=== PATIENT | female | born 1995 | race Caucasian/White ===

== ENCOUNTER 2017-05-20 17:38 | Inpatient (IN) | payer MEDICAID ==
[~2017-05-20] VITALS: Ht 177.8 cm; Wt 67.8 kg
[~2017-05-20 17:38] MED LIST: INSU100I18 SQ-INSULIN; INSU100V13 INJ; ONDA4TAB10 PO; OXYC5TAB3 PO
[2017-05-20 20:00] VITALS: BP 112/66
[2017-05-20] MEDS ORDERED: PROMETHAZINE 25 MG/ML, 1ML IM PRN (20:30)
[2017-05-20] MEDS: NICOTINE 7 MG/24 HR PATCH.TD24 TD SCH (20:30)
[2017-05-20] MEDS ORDERED: POLYETHYLENE GLYCOL 17 GM PACKET PO PRN (20:30)
[2017-05-20] MEDS ORDERED: BISACODYL 10 MG SUPP PR PRN (20:30)
[2017-05-20] MEDS ORDERED: DOCUSATE 100 MG CAPSULE PO PRN (20:30)
[2017-05-20] MEDS ORDERED: LORazepam 2 MG/ML, 1ML IVPush PRN (20:30)
[2017-05-20] MEDS ORDERED: morphine SULFATE 10 MG/ML, 1ML IVPush PRN (20:30)
[2017-05-20] MEDS ORDERED: NITROGLYCERIN 0.4 MG BOTTLE (25 TABS) SL PRN (20:30)
[2017-05-20] MEDS ORDERED: ACETAMINOPHEN 325 MG TABLET PO PRN (20:30)
[2017-05-20] MEDS ORDERED: ZOLPIDEM 5MG TABLET PO PRN (20:30)
[2017-05-20] MEDS ORDERED: REGULAR INSULIN 62.5 UNITS in SODIUM CHLORIDE 0.9% 249.375 ML IV PRN (20:32)
[2017-05-20] MEDS ORDERED: DEXTROSE 4 GM TAB.CHEW PO PRN (21:00)
[2017-05-20] MEDS ORDERED: DEXTROSE 50%, 50ML SYRINGE IVPush PRN (21:00)
[2017-05-20] MEDS: PLEASE ENTER HEIGHT AND WEIGHT MC SCH (21:00)
[2017-05-20] MEDS ORDERED: GLUCAGON 1 MG IM PRN (21:00)
[2017-05-20 21:31] LABS: ASPARTATE AMINO TRANSFERASE 46 U/L (15-37); BLOOD UREA NITROGEN 12 mg/dL (7-18)
[2017-05-20] MEDS: ONDANSETRON 2MG/ML, 2ML IVPush PRN (21:32)
[2017-05-20] MEDS: NS + 20MEQ KCL 1,000 ML IV SCH (21:32)
[2017-05-20] MEDS: ENOXAPARIN 40 MG/0.4 ML SQ SCH (21:32)
[2017-05-20] MEDS: HYDROcodone/APAP 5/325 TABLET PO PRN ×2 (21:33→22:10)
[2017-05-20 21:38] LABS: IS PT STATUS REG ER OR PRE ER? NO
[2017-05-20 22:16] VITALS: BP 112/66
[2017-05-21] MEDS: D5%-0.45NACL+KCL 20MEQ 1,000 ML IV SCH ×2 (01:27→06:10)
[2017-05-21 02:44] LABS: BLOOD UREA NITROGEN 10 mg/dL (7-18)
[2017-05-21] MEDS: NS + 20MEQ KCL 1,000 ML IV SCH ×2 (03:39→11:21)
[2017-05-21] MEDS: HYDROcodone/APAP 5/325 TABLET PO PRN ×4 (03:47→21:18)
[2017-05-21 04:00] VITALS: BP 99/62
[2017-05-21 04:38] LABS: BLOOD UREA NITROGEN 11 mg/dL (7-18)
[2017-05-21 04:43] LABS: ASPARTATE AMINO TRANSFERASE 36 U/L (15-37)
[2017-05-21] MEDS: ONDANSETRON 2MG/ML, 2ML IVPush PRN ×2 (06:31→14:05)
[2017-05-21] MEDS: INSULIN ASPART 100 UNITS/ML, PEN SQ-INSULIN SCH ×5 (06:33→21:00)
[2017-05-21] MEDS: INSULIN DETEMIR 100 UNITS/ML, PEN SQ-INSULIN SCH ×2 (08:00→21:19)
[2017-05-21 10:32] LABS: BLOOD UREA NITROGEN 9 mg/dL (7-18)
[2017-05-21 12:28] LABS: HCG UR OBC PASS
[2017-05-21] MEDS: PLEASE ENTER HEIGHT AND WEIGHT MC SCH (14:55)
[2017-05-21 20:24] VITALS: BP 107/78
[2017-05-21] MEDS: NICOTINE 7 MG/24 HR PATCH.TD24 TD SCH (20:30)
[2017-05-21] MEDS: ENOXAPARIN 40 MG/0.4 ML SQ SCH (21:18)
[2017-05-22] MEDS ORDERED: INSULIN ASPART 100 UNITS/ML, PEN SQ-INSULIN ONE (01:00)
[2017-05-22] MEDS: HYDROcodone/APAP 5/325 TABLET PO PRN ×2 (01:14→05:58)
[2017-05-22 02:36] VITALS: BP 110/64
[2017-05-22 05:24] LABS: BLOOD UREA NITROGEN 10 mg/dL (7-18)
[2017-05-22] MEDS: ONDANSETRON 2MG/ML, 2ML IVPush PRN (05:58)
[2017-05-22] MEDS: INSULIN ASPART 100 UNITS/ML, PEN SQ-INSULIN SCH ×2 (07:00→12:50)
[2017-05-22] MEDS: INSULIN DETEMIR 100 UNITS/ML, PEN SQ-INSULIN SCH (07:54)
[2017-05-22 09:02] VITALS: BP 102/68
== END 2017-05-22 13:30 | disposition home or self-care (01) | DRG 639 ==
LOC: CCU 19:39 → 3NE 05-21 13:48 → DCLOUNGE 05-22 13:14
PROVIDERS: ADMIT Internal Medicine
DX: E10.10 Type 1 diabetes mellitus with ketoacidosis without coma (principal); K22.4 Dyskinesia of esophagus; F17.210 Nicotine dependence, cigarettes, uncomplicated; Z79.4 Long term (current) use of insulin; Z81.3 Family history of other psychoactive substance abuse and dependence; Z81.1 Family history of alcohol abuse and dependence; Z83.3 Family history of diabetes mellitus; Z88.8 Allergy status to other drugs, medicaments and biological substances
CPT/HCPCS: 36415; 71010; 80048; 80053; 81001; 81025; 82010; 82800; 82962; 83036; 83690; 83735; 84100; 84484; 85025; 87081; 93005; J1650; J1815; J2405; J3480; J7050

== ENCOUNTER 2020-03-24 18:39 | Outpatient (CLI) | payer MEDICAID ==
[~2020-03-24] VITALS: Ht 179.1 cm; Wt 83.6 kg
[2020-03-24 21:20] LABS: BASOPHILS # (AUTO) 0.03 x10^3/uL (0-0.1); BASOPHILS % (AUTO) 1 % (0-1); EOSINOPHILS # (AUTO) 0.04 x10^3/uL (0-0.4); EOSINOPHILS % (AUTO) 1 % (1-7); LYMPHOCYTES # (AUTO) 1.72 x10^3/uL (1-3.4); LYMPHOCYTES % (AUTO) 23 % (22-44); MD NO; MEAN CORPUSCULAR HEMOGLOBIN 31.4 pg (27.0-34.8); MEAN CORPUSCULAR HGB CONC 34.5 g/dL (32.4-35.8); MEAN CORPUSCULAR VOLUME 90.9 fL (80-100); MEAN PLATELET VOLUME 8.2 fL (7.4-10.4); MONOCYTES # (AUTO) 0.47 x10^3/uL (0.2-0.8); MONOCYTES % (AUTO) 6 % (2-9); NEUTROPHILS # (AUTO) 5.25 x10^3/uL (1.8-6.8); NEUTROPHILS % (AUTO) 70 % (42-75); PLATELET COUNT 277 x10^3/uL (130-400); RED BLOOD COUNT 3.69 x10^6/uL (3.82-5.3)
== END 2020-03-24 21:22 | disposition home or self-care (01) ==
LOC: LDOP 18:39
PROVIDERS: ATTEND Obstetrics & Gynecology
DX: O42.90 Premature rupture of membranes, unspecified as to length of time between rupture and onset of labor, unspecified weeks of gestation (principal); Z3A.00 Weeks of gestation of pregnancy not specified
CPT/HCPCS: 36415; 59025; 84112; 85025; 86592; 86762; 86850; 86900; 87340; 87806; 99201; G0463; G0475

== ENCOUNTER 2020-04-01 09:20 | Inpatient (IN) | payer MEDICAID ==
[~2020-04-01] VITALS: Ht 179.1 cm; Wt 81.0 kg
[2020-04-01] MEDS ORDERED: OXYTOCIN 30U/ 0.9% NaCL 500ML 500 ML IV ONE (21:58)
[2020-04-01] MEDS ORDERED: D5%-LACTATED RINGERS 1,000 ML IV SCH (21:58)
[2020-04-01] MEDS ORDERED: CALCIUM CARBONATE 500 MG TAB.CHEW PO PRN (22:00)
[2020-04-01] MEDS ORDERED: MISOPROSTOL 25 MCG TABLET VG PRN (22:00)
[2020-04-01] MEDS ORDERED: METOCLOPRAMIDE 5 MG/ML, 2ML IVPush PRN (22:00)
[2020-04-01] MEDS ORDERED: ONDANSETRON 2MG/ML, 2ML IVPush PRN (22:00)
[2020-04-01] MEDS ORDERED: SODIUM CITRATE/CITRIC ACID 30 ML UDC PO PRN (22:00)
[2020-04-01] MEDS ORDERED: FENTANYL PF 100 MCG/2ML IV PRN (22:00)
[2020-04-01] MEDS ORDERED: TERBUTALINE 1 MG/ML, 1ML SQ PRN (22:00)
[2020-04-01] MEDS ORDERED: TERBUTALINE 1 MG/ML, 1ML IVPush PRN (22:00)
[2020-04-01] MEDS ORDERED: LIDOCAINE 1%, 20ML ONE (22:07)
[2020-04-01] MEDS ORDERED: NEWBORN KIT ONE (22:07)
[2020-04-01] MEDS ORDERED: MISOPROSTOL 25 MCG TABLET ONE (22:07)
[2020-04-01] MEDS ORDERED: MISOPROSTOL 200 MCG TABLET ONE (22:08)
[2020-04-01] MEDS ORDERED: OXYTOCIN 30U/ 0.9% NaCL 500ML 500 ML ONE (22:08)
[2020-04-01] MEDS: LACTATED RINGERS 1,000 ML IV SCH (22:20)
[2020-04-01 22:30] VITALS: BP 124/75
[2020-04-01] MEDS ORDERED: PLEASE ENTER HEIGHT AND WEIGHT MC SCH (22:30)
[2020-04-01 22:33] LABS: BASOPHILS # (AUTO) 0.02 x10^3/uL (0-0.1); BASOPHILS % (AUTO) 0 % (0-1); EOSINOPHILS # (AUTO) 0.09 x10^3/uL (0-0.4); EOSINOPHILS % (AUTO) 1 % (1-7); LYMPHOCYTES # (AUTO) 1.98 x10^3/uL (1-3.4); LYMPHOCYTES % (AUTO) 26 % (22-44); MD NO; MEAN CORPUSCULAR HEMOGLOBIN 31.5 pg (27.0-34.8); MEAN CORPUSCULAR HGB CONC 34.2 g/dL (32.4-35.8); MEAN CORPUSCULAR VOLUME 92.3 fL (80-100); MEAN PLATELET VOLUME 8.8 fL (7.4-10.4); MONOCYTES # (AUTO) 0.59 x10^3/uL (0.2-0.8); MONOCYTES % (AUTO) 8 % (2-9); NEUTROPHILS # (AUTO) 4.98 x10^3/uL (1.8-6.8); NEUTROPHILS % (AUTO) 65 % (42-75); PLATELET COUNT 264 x10^3/uL (130-400); RED CELL DISTRIBUTION WIDTH 13.1 % (9.6-15.2)
[2020-04-02] MEDS ORDERED: FENTANYL PF 100 MCG/2ML ONE ×2 (02:57→04:19)
[2020-04-02] MEDS: FENTANYL PF 100 MCG/2ML IVPush PRN ×2 (03:00→04:24)
[2020-04-02] MEDS ORDERED: FENTANYL/BUPIV./NS/PF 250 ML EPIDCONT ONE (06:05)
[2020-04-02] MEDS ORDERED: BUPIVACAINE 0.25% ONE ×2 (06:20→06:22)
[2020-04-02] MEDS ORDERED: LIDOCAINE/PF 1.5%-EPI 1:200K, 30ML ONE (06:22)
[2020-04-02] MEDS ORDERED: LIDOCAINE 1%, 20ML ONE (06:22)
[2020-04-02] MEDS: LACTATED RINGERS 1,000 ML IV SCH ×2 (07:44→12:56)
[2020-04-02] MEDS ORDERED: REGULAR INSULIN 100 UNITS in SODIUM CHLORIDE 0.9% 99 ML IV PRN (08:30)
[2020-04-02] MEDS ORDERED: D5%-0.45% NACL 1,000 ML IV SCH (08:30)
[2020-04-02] MEDS ORDERED: OXYTOCIN 30U/ 0.9% NaCL 500ML 500 ML IV PRN (08:30)
[2020-04-02] MEDS ORDERED: SIMETHICONE 80 MG CHEW TAB PO PRN (16:30)
[2020-04-02] MEDS ORDERED: ONDANSETRON 2MG/ML, 2ML IV PRN (16:30)
[2020-04-02] MEDS ORDERED: METOCLOPRAMIDE 5 MG/ML, 2ML IV PRN (16:30)
[2020-04-02] MEDS ORDERED: ACETAMINOPHEN 325 MG TABLET PO PRN (16:30)
[2020-04-02] MEDS ORDERED: HYDROcodone/APAP 5/325 TABLET PO PRN (16:30)
[2020-04-02] MEDS ORDERED: CALCIUM CARBONATE 500 MG TAB.CHEW PO PRN (16:30)
[2020-04-02] MEDS ORDERED: IBUPROFEN 600 MG TABLET ONE (17:32)
[2020-04-02] MEDS ORDERED: OXYTOCIN 30U/ 0.9% NaCL 500ML 500 ML ONE (17:32)
[2020-04-02] MEDS: OXYTOCIN 30U/ 0.9% NaCL 500ML 500 ML IV SCH (17:35)
[2020-04-02] MEDS: IBUPROFEN 600 MG TABLET PO PRN (17:35)
[2020-04-02] MEDS ORDERED: HYDROcodone/APAP 5/325 TABLET ONE (18:47)
[2020-04-02] MEDS: HYDROcodone/APAP 5/325 TABLET PO PRN (18:49)
[2020-04-02 20:50] VITALS: BP 111/71
[2020-04-02 23:42] LABS: BASOPHILS # (AUTO) 0.12 x10^3/uL (0-0.1); BASOPHILS % (AUTO) 1 % (0-1); EOSINOPHILS # (AUTO) 0.04 x10^3/uL (0-0.4); EOSINOPHILS % (AUTO) 0 % (1-7); LYMPHOCYTES # (AUTO) 1.41 x10^3/uL (1-3.4); LYMPHOCYTES % (AUTO) 11 % (22-44); MD NO; MEAN CORPUSCULAR HEMOGLOBIN 31.9 pg (27.0-34.8); MEAN CORPUSCULAR HGB CONC 34.6 g/dL (32.4-35.8); MEAN CORPUSCULAR VOLUME 92.2 fL (80-100); MONOCYTES # (AUTO) 0.58 x10^3/uL (0.2-0.8); MONOCYTES % (AUTO) 4 % (2-9); NEUTROPHILS # (AUTO) 11.01 x10^3/uL (1.8-6.8); NEUTROPHILS % (AUTO) 84 % (42-75); PLATELET COUNT 214 x10^3/uL (130-400); RED BLOOD COUNT 3.31 x10^6/uL (3.82-5.3)
[2020-04-03 00:11] VITALS: BP 105/65
[2020-04-03] MEDS: OXYTOCIN 30U/ 0.9% NaCL 500ML 500 ML IV SCH ×3 (02:24→22:24)
[2020-04-03] MEDS: IBUPROFEN 600 MG TABLET PO PRN ×3 (02:49→20:57)
[2020-04-03 04:04] VITALS: BP 110/68
[2020-04-03] MEDS: HYDROcodone/APAP 5/325 TABLET PO PRN ×4 (05:56→20:57)
[2020-04-03 07:35] VITALS: BP 113/77
[2020-04-03] MEDS: DOCUSATE 100 MG CAPSULE PO PRN ×2 (07:46→20:58)
[2020-04-03] MEDS: PRENATAL VIT/IRON/FA 1 EACH TABLET PO SCH (07:46)
[2020-04-03 12:45] VITALS: BP 115/82
[2020-04-03 20:00] VITALS: BP 102/70
[2020-04-04] MEDS: HYDROcodone/APAP 5/325 TABLET PO PRN ×2 (02:10→06:56)
[2020-04-04] MEDS: IBUPROFEN 600 MG TABLET PO PRN (06:09)
[2020-04-04 07:14] VITALS: BP 112/69
[2020-04-04] MEDS: OXYTOCIN 30U/ 0.9% NaCL 500ML 500 ML IV SCH (07:25)
[2020-04-04] MEDS: DOCUSATE 100 MG CAPSULE PO PRN (07:36)
[2020-04-04] MEDS: PRENATAL VIT/IRON/FA 1 EACH TABLET PO SCH (07:36)
[2020-04-04] MEDS ORDERED: IBUP-1222 PO (08:57)
[2020-04-04] MEDS ORDERED: DOCU100C33 PO (08:58)
== END 2020-04-04 12:46 | disposition home or self-care (01) | DRG 560 ==
LOC: LDIP 21:58 → 2NW 04-02 20:40
PROVIDERS: ADMIT Obstetrics & Gynecology; ATTEND Obstetrics & Gynecology
PROC: 3E0P7VZ Introduction of Hormone into Female Reproductive, Via Natural or Artificial Opening (ICD-10-PCS; 2020-04-01)
PROC: 0KQM0ZZ Repair Perineum Muscle, Open Approach (ICD-10-PCS; principal; 2020-04-02)
PROC: 10E0XZZ Delivery of Products of Conception, External Approach (ICD-10-PCS; 2020-04-02)
PROC: 10907ZC Drainage of Amniotic Fluid, Therapeutic from Products of Conception, Via Natural or Artificial Opening (ICD-10-PCS; 2020-04-02)
PROC: 10H07YZ Insertion of Other Device into Products of Conception, Via Natural or Artificial Opening (ICD-10-PCS; 2020-04-02)
PROC: 3E0R3BZ Introduction of Anesthetic Agent into Spinal Canal, Percutaneous Approach (ICD-10-PCS; 2020-04-02)
PROC: 00HU33Z Insertion of Infusion Device into Spinal Canal, Percutaneous Approach (ICD-10-PCS; 2020-04-02)
PROC: 30233S1 Transfusion of Nonautologous Globulin into Peripheral Vein, Percutaneous Approach (ICD-10-PCS; 2020-04-03)
DX: O24.02 Pre-existing type 1 diabetes mellitus, in childbirth (principal); K21.9 Gastro-esophageal reflux disease without esophagitis; O99.62 Diseases of the digestive system complicating childbirth; O70.1 Second degree perineal laceration during delivery; Z96.41 Presence of insulin pump (external) (internal); Z37.0 Single live birth; Z88.8 Allergy status to other drugs, medicaments and biological substances; Z3A.37 37 weeks gestation of pregnancy; Z20.828 Contact with and (suspected) exposure to other viral communicable diseases
CPT/HCPCS: 36415; 85025; 85461; 86592; 86850; 86900; G0378; J2790; J3010; J3490; J2590; J7120; U0001-CS

== ENCOUNTER 2020-11-21 04:30 | Inpatient (IN) | payer MEDICAID ==
[~2020-11-21] VITALS: Ht 177.8 cm; Wt 69.4 kg
[~2020-11-21 04:30] MED LIST changes: +DOCU100C33 PO; +IBUP-1222 PO; -OXYC5TAB3 PO; +OXYC5TAB98 PO
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
[2020-11-21 05:28] LABS: PH, VENOUS 7.173 pH (7.320-7.420)
[2020-11-21] MEDS ORDERED: POTASSIUM CHLORIDE 40 MEQ in SODIUM CHLORIDE 0.9% 500 ML IV ONE (05:30)
[2020-11-21 05:42] LABS: BASOPHILS % (AUTO) 0 % (0-1); EOSINOPHILS % (AUTO) 0 % (1-7); LYMPHOCYTES % (AUTO) 12 % (22-44); MEAN CORPUSCULAR HEMOGLOBIN 30.7 pg (27.0-34.8); MEAN CORPUSCULAR HGB CONC 34.3 g/dL (32.4-35.8); MEAN PLATELET VOLUME 8.1 fL (7.4-10.4); MONOCYTES % (AUTO) 4 % (2-9); NEUTROPHILS % (AUTO) 83 % (42-75); PLATELET COUNT 292 x10^3/uL (130-400); RED BLOOD COUNT 4.04 x10^6/uL (3.82-5.3); RED CELL DISTRIBUTION WIDTH 12.1 % (9.6-15.2)
[2020-11-21] MEDS ORDERED: MAALOX/HYOSCYAMINE/LIDOCAINE 45 ML BTL ONE (05:43)
[2020-11-21 05:45] LABS: ALBUMIN 3.5 g/dL (3.4-5.0); ANION GAP 15 mmol/L (5-15); CALCIUM 8.1 mg/dL (8.5-10.1); CHLORIDE 107 mmol/L (98-107)
[2020-11-21 05:47] LABS: MD NO
[2020-11-21 05:48] LABS: ALANINE AMINOTRANSFERASE 12 U/L (12-78); ALKALINE PHOSPHATASE 97 U/L (45-117); BILIRUBIN,TOTAL 1.3 mg/dL (0.2-1.0); CREATININE 0.74 mg/dL (0.55-1.02); TOTAL PROTEIN 6.5 g/dL (6.4-8.2)
[2020-11-21 06:00] LABS: ACETONE, SERUM Large (80mg/dL) (Negative)
[2020-11-21] MEDS ORDERED: MAALOX/HYOSCYAMINE/LIDOCAINE 45 ML BTL PO ONE (06:00)
[2020-11-21] MEDS ORDERED: SODIUM CHLORIDE 0.9% 1,000ML IVBOLUS ONE (06:00)
--- NOTE | 2020-11-21 06:00 | NUR ---
PT SUPINE ON GURNEY RESTING COMFORTABLY WITH EYES CLOSED. NO NEEDS AT THIS TIME. CALL LIGHT AND PERSONAL BELONGINGS WITHIN REACH.
--- NOTE | 2020-11-21 06:05 | NUR ---
PER ERP, DISCONTINUE POSTASSIUM INFUSION. INFUSION DISCONTINUED PER ORDER. NO ADDITIONAL NEEDS AT THIS TIME.
--- NOTE | 2020-11-21 06:26 | NUR ---
INSULIN INFUSION STARTED PER ERP ORDER AND PROTOCOL. VERIFIED WITH TED RN. PT TOLERATING WELL. PERSONAL INSULIN PUMP DISCONTINUED AND TURNED OFF. PT RESTING COMFORTABLY ON CELL PHONE. PT DENIES ANY ADDITIONAL NEEDS AT THIS TIME. CALL LIGHT AND BELONGINGS WITHIN REACH.
[2020-11-21] MEDS ORDERED: REGULAR INSULIN 100 UNITS in SODIUM CHLORIDE 0.9% 99 ML IV PRN ×2 (06:30→07:00)
--- NOTE | 2020-11-21 06:54 | NUR ---
BEDSIDE REPORT GIVEN TO UMAIR ORTA AND CORKY ORTA.
--- NOTE | 2020-11-21 06:54 | NUR ---
Report from Mary ORTA. Pt resting in bed with eyes closed, easily awakens to RNs entering room. POC discussed. Pt denies other needs.
[2020-11-21] MEDS ORDERED: DOCUSATE 100 MG CAPSULE PO PRN (07:00)
[2020-11-21] MEDS ORDERED: SODIUM CHLORIDE 0.9% 1,000 ML IV SCH (07:00)
[2020-11-21] MEDS ORDERED: ONDANSETRON 2MG/ML, 2ML IV PRN (07:00)
[2020-11-21] MEDS ORDERED: ACETAMINOPHEN 325 MG TABLET PO PRN (07:00)
[2020-11-21] MEDS ORDERED: D5%-0.45NACL+KCL 20MEQ 1,000 ML IV SCH (07:00)
[2020-11-21] MEDS ORDERED: LACTULOSE 10 GM/15 ML UDC PO PRN (07:00)
[2020-11-21] MEDS ORDERED: POLYETHYLENE GLYCOL 17 GM PACKET PO PRN (07:00)
--- NOTE | 2020-11-21 07:59 | NUR ---
Report called to Edison ORTA in CCU. Floor ready for pt transfer.
[2020-11-21] MEDS: ENOXAPARIN 40 MG/0.4 ML SQ SCH (08:44)
[2020-11-21] MEDS ORDERED: IBUPROFEN 200 MG TABLET ONE (11:23)
[2020-11-21] MEDS ORDERED: IBUPROFEN 200 MG TABLET PO PRN (11:30)
[2020-11-21 12:21] LABS: ANION GAP 6 mmol/L (5-15); CALCIUM 7.5 mg/dL (8.5-10.1); CHLORIDE 116 mmol/L (98-107); CREATININE 0.63 mg/dL (0.55-1.02)
[2020-11-21] MEDS: HYDROcodone/APAP 5/325 TABLET PO PRN ×3 (12:56→23:48)
[2020-11-21] MEDS ORDERED: INSULIN GLARGINE 100 UNITS/ML, PEN ONE (12:59)
[2020-11-21] MEDS ORDERED: INSULIN GLARGINE 100 UNITS/ML, PEN SQ-INSULIN SCH (13:00)
[2020-11-21] MEDS: SODIUM CHLORIDE 0.9% 1,000 ML IV SCH ×2 (13:03→23:18)
[2020-11-21 13:25] LABS: MICROSCOPIC NOT IND
[2020-11-21 15:19] VITALS: BP 97/56
[2020-11-21] MEDS: INSULIN LISPRO 100 UNITS/ML, PEN SQ-INSULIN SCH ×2 (16:00→22:13)
[2020-11-21 19:13] VITALS: BP 103/59
[2020-11-22] MEDS ORDERED: LEVEMIR 20 UNIT HOMEINJ SCH (01:00)
[2020-11-22 02:07] VITALS: BP 99/66
[2020-11-22 06:06] LABS: CALCIUM 7.9 mg/dL (8.5-10.1); CHLORIDE 115 mmol/L (98-107)
[2020-11-22 06:10] LABS: CREATININE 0.52 mg/dL (0.55-1.02)
[2020-11-22 06:11] LABS: ANION GAP 6 mmol/L (5-15)
[2020-11-22 06:36] VITALS: BP 102/65
[2020-11-22] MEDS: NOVOLOG SQ SCH ×4 (07:00→20:16)
[2020-11-22] MEDS: INSULIN LISPRO 100 UNITS/ML, PEN SQ-INSULIN SCH (07:00)
[2020-11-22] MEDS: SODIUM CHLORIDE 0.9% 1,000 ML IV SCH ×2 (07:28→16:25)
[2020-11-22] MEDS: ENOXAPARIN 40 MG/0.4 ML SQ SCH (08:10)
[2020-11-22] MEDS: HYDROcodone/APAP 5/325 TABLET PO PRN ×4 (08:10→21:56)
[2020-11-22 12:27] VITALS: BP 114/62
[2020-11-22] MEDS ORDERED: METOCLOPRAMIDE 5 MG/ML, 2ML IVPush PRN (15:00)
[2020-11-22 19:45] VITALS: BP 108/70
[2020-11-22] MEDS: LEVEMIR 20 UNIT HOMEINJ SCH (20:15)
[2020-11-23] MEDS: SODIUM CHLORIDE 0.9% 1,000 ML IV SCH ×2 (00:05→08:01)
[2020-11-23 00:44] VITALS: BP 112/69
[2020-11-23] MEDS: HYDROcodone/APAP 5/325 TABLET PO PRN ×3 (02:21→12:16)
[2020-11-23 06:31] VITALS: BP 105/62
[2020-11-23] MEDS: NOVOLOG SQ SCH ×2 (07:00→11:00)
[2020-11-23] MEDS: LEVEMIR 20 UNIT HOMEINJ SCH (08:03)
[2020-11-23] MEDS: ENOXAPARIN 40 MG/0.4 ML SQ SCH (08:05)
[2020-11-23 12:49] VITALS: BP 145/74
== END 2020-11-23 14:04 | disposition home or self-care (01) | DRG 420 ==
LOC: ED 05:24 → EDIP 06:27 → CCU 08:15 → 3N 14:57 → DCLOUNGE 11-23 13:55
PROVIDERS: ADMIT Internal Medicine; ATTEND Hospitalist
DX: E10.10 Type 1 diabetes mellitus with ketoacidosis without coma (principal); E10.42 Type 1 diabetes mellitus with diabetic polyneuropathy; E10.43 Type 1 diabetes mellitus with diabetic autonomic (poly)neuropathy; K31.84 Gastroparesis; F32.9 Major depressive disorder, single episode, unspecified; F17.210 Nicotine dependence, cigarettes, uncomplicated; E87.1 Hypo-osmolality and hyponatremia; E83.51 Hypocalcemia; Z96.41 Presence of insulin pump (external) (internal); Z79.4 Long term (current) use of insulin; Z82.5 Family history of asthma and other chronic lower respiratory diseases; Z79.899 Other long term (current) drug therapy; Z88.8 Allergy status to other drugs, medicaments and biological substances
CPT/HCPCS: 36415; 80048; 80053; 81003; 82010; 82803; 82947; 82962; 83036; 83690; 83735; 84100; 84443; 85025; 87081; 93005; 99291; G0378; J1650; J3480; J1815; J7030; J7040

== ENCOUNTER 2021-06-15 16:57 | Outpatient (CLI) | payer MEDICAID ==
[2021-06-15 18:08] VITALS: BP 126/71
[2021-06-15 18:13] LABS: FERNING TEST FERNING NOT PRESENT (NEGATIVE)
[2021-06-15 18:32] LABS: CLUE CELLS NONE SEEN (NONE SEEN); WET PREP WBCS MANY (FEW)
[2021-06-15] MEDS ORDERED: ASPI-963 PO (18:49)
[2021-06-15] MEDS ORDERED: PREN1TAB10 PO (18:49)
== END 2021-06-15 19:23 | disposition home or self-care (01) ==
LOC: LDOP 16:57
PROVIDERS: ATTEND Obstetrics & Gynecology
DX: O42.912 Preterm premature rupture of membranes, unspecified as to length of time between rupture and onset of labor, second trimester (principal); Z3A.26 26 weeks gestation of pregnancy
CPT/HCPCS: 59025; 76815; 84112; 87210; 87808; 89060; Q0114